=== PATIENT | female | born 1945 | race Two or more races ===

== ENCOUNTER → 2016-08-03 | Outpatient (CLI) | payer MEDICARE ==
--- NOTE | 2016-08-03 10:02 | RAD ---
DATE: 08/03/2016 EXAM: DIGITAL SCREEN LT W/CAD HISTORY: Screening. The history of right breast malignancy with mastectomy is noted. COMPARISON: One year earlier This study was interpreted with the benefit of Computerized Aided Detection (CAD). FINDINGS: Breast Density: SCATTERED The breast parenchyma shows scattered fibroglandular densities. Breast parenchyma level B. There has not been a significant change compared to the previous exam IMPRESSION: Benign findings left breast BI-RADS CATEGORY: 2 BENIGN FINDING(S) RECOMMENDED FOLLOW-UP: 12M 12 MONTH FOLLOW-UP PQRS compliance statement: Patient information was entered into a reminder system with a target due date 08/03/2017 for the next mammogram. Mammography is a sensitive method for finding small breast cancers, but it does not detect them all and is not a substitute for careful clinical examination. A negative mammogram does not negate a clinically suspicious finding and should not result in delay in biopsying a clinically suspicious abnormality. "Our facility is accredited by the [employer] Mammography [employer]."
== END | disposition home or self-care (01) ==
LOC: MAMMO 13:39
PROVIDERS: ATTEND Internal Medicine Hematology & Oncology
DX: Z12.31 Encounter for screening mammogram for malignant neoplasm of breast (principal)
CPT/HCPCS: G0202; 77067

== ENCOUNTER → 2016-12-07 | Outpatient (CLI) | payer MEDICARE ==
[~2016-12-07] MED LIST: ALPR0.254 PO; AMIT10TA PO; ASPI-482 PO; ATORVASTATIN CA80 MG PO; GADOBUTROL 7.5 MMOL/7.5 ML VIAL IV ONE; LISI1TAB5 PO; TRAM50TA PO
--- NOTE | 2016-12-07 15:53 | KCIC ---
EXAM: Brain and internal auditory canal MRI with and without contrast. HISTORY: Sensorineural hearing loss. TECHNIQUE: Multiplanar, multisequence magnetic resonance imaging of the brain an internal auditory canals was performed prior to and following the administration of 4.5 cc Gadavist intravenous contrast. COMPARISON: None. FINDINGS: There is no restricted diffusion to suggest acute or subacute infarction. There is no susceptibility effect to suggest hemorrhage. There is no mass effect or midline shift. There is no hydrocephalus. There is scattered foci of T2/FLAIR hyperintensity within the cerebral white matter, a nonspecific finding likely due to chronic small vessel disease. The orbits are unremarkable. There is and mild right maxillary sinus mucosal thickening and a small right maxillary sinus air-fluid level. There is relative decreased right maxillary sinus size and sinus wall thickening. The mastoid air cells are clear. There is a hypoplastic distal right vertebral artery. There are normal flow voids within the cerebral vessels. The internal auditory canals are symmetric in size. The membranous labyrinths are unremarkable. There is faint enhancement of segments of the cisternal and intracanicular segments of the facial and vestibulocochlear nerves. No mass lesion is seen. IMPRESSION: 1. Scattered foci of signal change within the cerebral white matter, a nonspecific finding likely due to chronic small vessel disease. 2. Faint enhancement of portions of the cisternal and intracanalicular segments of the facial and vestibular cochlear nerves without a mass lesion. Given the bilaterality of this finding and history of sensorineural loss, the possibility of a viral infectious, autoimmune or even drug-related etiology can be considered. 3. Right maxillary sinusitis. Electronically signed by: Mala Schmidt MD (12/07/2016 3:50 PM) [id number]
== END | disposition home or self-care (01) ==
LOC: KCIC MRI 13:24
PROVIDERS: ATTEND Otolaryngology
DX: H90.5 Unspecified sensorineural hearing loss (principal); J32.0 Chronic maxillary sinusitis; R90.82 White matter disease, unspecified
CPT/HCPCS: 70553; 82565; A9585

== ENCOUNTER → 2019-10-05 | Outpatient (CLI) | payer MEDICARE ==
[~2019-10-05] MED LIST changes: -GADOBUTROL 7.5 MMOL/7.5 ML VIAL IV ONE; +LISI1TAB37 PO; -LISI1TAB5 PO
--- NOTE | 2019-10-06 15:49 | RAD ---
DATE: 10/05/2019 12:28 PM EXAM: MAMMO DOUGIE SCREEN LT HISTORY: Screening . Personal history right mastectomy 2007 for breast cancer. COMPARISON: 09/13/2017, 09/18/2018 CC and MLO views of the left breast were performed. Left breast tomosynthesis was performed in CC and MLO projections. This study was interpreted with the benefit of Computerized Aided Detection (CAD). FINDINGS: Breast Density: SCATTERED The breast parenchyma shows scattered fibroglandular densities. Breast parenchyma level B No suspicious masses, microcalcifications or architectural distortion is present to suggest malignancy in either breast. The visualized axillae are unremarkable. IMPRESSION: No mammographic evidence of malignancy. BI-RADS CATEGORY: 1 NEGATIVE RECOMMENDED FOLLOW-UP: 12M 12 MONTH FOLLOW-UP Annual screening mammography is recommended, unless clinically indicated sooner based on symptoms or change in physical exam. PQRS compliance statement: Patient information was entered into a reminder system with a target due date for the next mammogram. Mammography is a sensitive method for finding small breast cancers, but it does not detect them all and is not a substitute for careful clinical examination. A negative mammogram does not negate a clinically suspicious finding and should not result in delay in biopsying a clinically suspicious abnormality. "Our facility is accredited by the [employer] Mammography [employer]."
== END ==
LOC: MAMMO 12:24
PROVIDERS: ATTEND Family Medicine
DX: Z12.31 Encounter for screening mammogram for malignant neoplasm of breast (principal); Z85.3 Personal history of malignant neoplasm of breast; Z90.11 Acquired absence of right breast and nipple
CPT/HCPCS: 77063; 77067

== ENCOUNTER → 2020-10-10 | Outpatient (CLI) | payer MEDICARE ==
--- NOTE | 2020-10-10 15:30 | RAD ---
INDICATION: 75 years of age asymptomatic female patient presents for screening mammography. TECHNIQUE: Full field craniocaudal and mediolateral oblique images of the left breast were obtained using digital technique with tomosynthesis and also analyzed with computer-aided detection software. COMPARISON: Prior mammographic imaging dating back to 10/05/2019, 818, 09/13/2017, 08/03/2016. BREAST COMPOSITION: Category B: There are scattered fibroglandular densities. FINDINGS: Benign calcifications are present. The parenchymal pattern appears stable. No suspicious masses, microcalcifications or architectural distortion is present to suggest malignanc y in the left breast. The visualized axillae are unremarkable. IMPRESSION: No mammographic evidence of malignancy. RECOMMENDATION: Annual screening mammography is recommended, unless clinically indicated sooner based on symptoms or change in physical exam. BIRADS 2: BENIGN This study was interpreted with the benefit of Computerized Aided Detection (CAD). Patient information is entered into the reminder system with a target due date for the next screening mammogram. Mammography is the most sensitive method for finding small breast cancers, but it does not detect the m all and is not a substitute for careful clinical examination. A negative mammogram does not negate a clinically suspicious finding and should not result in delay in biopsying a clinically suspicious a bnormality. "Our facility is accredited by the [employer] Mammography [employer]." Electronically signed by: Philip Cr MD (10/10/2020 3:27 PM) [email or web address]
== END ==
LOC: MAMMO 08:58
PROVIDERS: ATTEND Family Medicine
DX: Z12.13 Encounter for screening for malignant neoplasm of small intestine (principal); R92.1 Mammographic calcification found on diagnostic imaging of breast
CPT/HCPCS: 77063; 77067